=== PATIENT | female | born 1955 | race African-American/Black ===

== ENCOUNTER 2018-03-16 21:32 | Emergency (ER) | payer MEDICARE, OTHER ==
[~2018-03-16] VITALS: Ht 165.1 cm; Wt 140.0 kg
[~2018-03-16 21:32] MED LIST: FLUT9.9S NS
[2018-03-16] MEDS ORDERED: OXYMETAZOLINE HCL NASAL SPRAY 15ML BOTHNSTRLS STA (23:24)
[2018-03-17 00:49] LABS: BASOPHILS % 0.2 % (0.0-2.0); EOSINOPHILS % 0.3 % (0.0-5.0); HEMATOCRIT. 26.8 % (36.0-48.0); LYMPHOCYTES % 8.8 % (20.0-50.0); MEAN CORPUSCULAR HEMOGLOBIN 30.4 pg (28.0-32.0); MEAN CORPUSCULAR VOLUME 90.4 fL (81.0-99.0); MEAN PLATELET VOLUME 8.4 fl (7.4-10.4); MONOCYTES % 8.2 % (2.0-8.0); NEUTROPHILS % 82.5 % (40.0-76.0); PLATELET 195 x1000/uL (130-400); RED BLOOD CELL COUNT 2.96 mill/uL (4.2-5.4); RED CELL DISTRIBUTION WIDTH 17.5 % (11.6-14.6)
[2018-03-17 01:10] LABS: CHLORIDE 103 mEq/L (98-107)
[2018-03-17 02:50] VITALS: BP 182/56
== END 2018-03-17 03:50 | disposition home or self-care (01) ==
LOC: ER 21:32
DX: R04.0 Epistaxis (principal); I13.0 Hypertensive heart and chronic kidney disease with heart failure and stage 1 through stage 4 chronic kidney disease, or unspecified chronic kidney disease; E11.22 Type 2 diabetes mellitus with diabetic chronic kidney disease; N18.9 Chronic kidney disease, unspecified; E11.65 Type 2 diabetes mellitus with hyperglycemia; D64.9 Anemia, unspecified; I50.9 Heart failure, unspecified; Z99.2 Dependence on renal dialysis; Z79.899 Other long term (current) drug therapy; Z87.891 Personal history of nicotine dependence
CPT/HCPCS: 36415; 86850; 86900; 99283